=== PATIENT | male | born 1955 | race Caucasian/White ===

== ENCOUNTER → 2019-11-22 11:02 | Outpatient (CLI) | payer OTHER, SELFPAY ==
[2019-11-23 01:59] LABS: COVID19 Sendout Not Detected (Not Detect)
== END ==
PROVIDERS: Visit Provider Physician Assistant
DX: Z01.812 Encounter for preprocedural laboratory examination (principal)
CPT/HCPCS: 87635

== ENCOUNTER 2019-11-24 06:59 | Day surgery (SDC) | payer OTHER, SELFPAY ==
[2019-11-17 14:56] VITALS: BMI 23.7
[2019-11-24 07:19] VITALS: BP 150/94; PULSE 55; RESP 16; TEMP 36.8; O2SAT 100; BMI 23.8
[2019-11-24] MEDS: LACTATED RINGERS 1,000 ML 100 ML IV (07:35)
[2019-11-24] MEDS: CEFAZOLIN 2 GM/100 ML FROZ.PIGGY IV (07:35)
--- NOTE | 2019-11-24 07:38 | PM.PREOP ---
Pre-operative Note COVID-19 COVID-19 status: Negative Result date/Date tested (Pos, Neg/Pending): 11/22/19 Interval Note History & Physical reviewed/Exam performed by Physician: Yes Changes to H&P: No
--- NOTE | 2019-11-24 08:11 | SUR.OPER ---
Prone on padded OR bed, head in foam head support, gel chest rolls, gel pad under knees, pillow under lower legs, toes free of pressure, arms secured on padded arm boards at <90 degrees abduction. Safety belt at thigh.
[2019-11-24] MEDS: metroNIDAZOLE 500 MG/100 ML PIGGYBACK 100 MG IV (08:15)
[2019-11-24] MEDS: BUPIVACAINE 0.25% W/ EPI 30 ML VIAL INJ (08:18)
[2019-11-24] MEDS: BUPIVACAINE LIPOSOME 266 MG/20 ML VIAL INJ (08:18)
[2019-11-24] MEDS: DIBUCAINE 1% OINT 28 GM 1 APPLIC TOP (08:24)
--- NOTE | 2019-11-24 08:33 | PM.OP.1 ---
Operative Date/Time/Diagnoses Date of procedure: 11/24/19 Time of procedure: 08:33 Pre-op diagnosis: hemorrhoids Post-op diagnosis: same Procedure & Clinicians Procedure: Excision of internal and external hemorrhoids, two columns Same procedure as scheduled: Yes Indications: Perianal pain and swelling Surgeon: Izabela Bautista Click Yes if Unassisted: Yes Anesthesia Type: General Operative Notes Findings: Internal and external hemorrhoids, left lateral and right posterior hemorrhoidal columns Specimen(s): none sent Estimated Blood Loss (mL): 1 Procedure in detail: The patient was brought into the OR. Sequential compression devices were placed on both legs and turned on. Appropriate perioperative antibiotics were given. General anesthesia was induced and the patient was intubated. The patient was turned prone onto the OR table. All bony prominences were padded. The buttocks were taped apart. The perianal area was prepped and draped in sterile fashion with betadine prep. Surgical timeout was conducted. 0.25% Marcaine with epi was used to perform a four quadrant anal block using 5mL per quadrant for a total of 20mL. On external exam there were moderate external hemorrhoids seen in the right posterior and left lateral columns. With copious lubricant, an anorectal exam was performed using an anal retractor. Large internal hemorrhoids were seen in the left lateral and right posterior columns. The right posterior hemorrhoid was grasped proximal to the dentate line and divided at its base using a Thunderbeats dissector. Dissection was carried along the base of the hemorrhoid avoiding the sphincter muscles, excising the internal and external hemorrhoidal column. The same was again performed at the left lateral hemorrhoidal column. The left lateral hemorrhoid was grasped proximal to the dentate line and divided at its base using a Thunderbeats dissector. Dissection was carried along the base of the hemorrhoid avoiding the sphincter muscles, excising the internal and external hemorrhoidal column. The entire anal canal was then again examined. There was good hemostasis. Exparel was injected circumferentially in small aliquots, for a total of 20 mL. 0.25% Marcaine with epinephrine was injected circumferentially for a total of 50mL. A large Gelfoam was then coated and rolled with Dibucaine and placed in the anal canal. A thick layer of Dibucaine was used to coat the anoderm. A stack of 4x4 gauze was then used to cover the anal opening and secured in place with medipore tape. The patient was transferred onto her hospital bed into supine position. She was then awakened from anesthesia and extubated. Needle, sponge, and instrument counts were correct x 2. The patient was transferred to the PACU in stable condition. Complications: none Post-operative Condition: stable Disposition: PACU
[2019-11-24 08:45] VITALS: BP 151/82; PULSE 62; RESP 14; TEMP 36.1; O2SAT 100
[2019-11-24 08:48] VITALS: BP 141/72; PULSE 60; RESP 12; O2SAT 100
[2019-11-24 08:53] VITALS: BP 136/68; PULSE 58; RESP 16; O2SAT 100
[2019-11-24 08:58] VITALS: BP 132/75; PULSE 55; RESP 12; TEMP 36.7; O2SAT 100
[2019-11-24 09:30] VITALS: BP 136/79; PULSE 49; RESP 16; TEMP 36.6; O2SAT 100
== END 2019-11-24 09:40 | disposition home or self-care (01) ==
PROVIDERS: Referring Provider Surgery; Visit Provider Surgery
PROC: (CPT 46260; principal; 2019-11-24 07:45)
DX: K64.8 Other hemorrhoids (principal); K64.4 Residual hemorrhoidal skin tags
CPT/HCPCS: 46260; C9290; J0330; J0690; J1100; J2405; J2704; J3010

== ENCOUNTER → 2020-11-27 09:56 | Outpatient (CLI) | payer OTHER, SELFPAY ==
[2020-11-27 10:58] LABS: Add Manual Diff / Slide Review NO; Basophils Absolute Auto 100 /uL (0-100); Basophils Percent Auto 0.8 % (0-2); Eosinophils Absolute Auto 100 /uL (0-450); Eosinophils Percent Auto 0.7 % (2-4); Hematocrit 39.1 % (41-53); Hemoglobin 13.2 g/dL (13.5-17.5); Lymphocytes Absolute Auto 2500 /uL (1100-4500); Lymphocytes Percent Auto 32.4 % (25-40); Mean Corpuscular HGB Conc 33.9 % (30-36); Mean Corpuscular Hemoglobin 32.3 PG (26-34); Mean Corpuscular Volume 95.5 fL (80-100); Monocytes Absolute Auto 700 /uL (0-900); Monocytes Percent Auto 9.3 % (3-14); Neutrophils Absolute Auto 4400 /uL (1500-7000); Neutrophils Percent Auto 56.8 % (50-75); Platelet Count 272 X10^3/uL (150-400); Red Blood Cell Count 4.09 X10^6/uL (4.5-5.9); Red Cell Distribution Width 13.3 % (11.6-14.8); White Blood Cell Count 7.7 X10^3/uL (4.5-11.0)
[2020-11-27 11:13] LABS: Alanine Aminotransferase 19 IU/L (<50); Albumin 4.1 g/dL (3.5-5.0); Albumin Globulin Ratio 1.6 (1.0-2.8); Alkaline Phosphatase 61 U/L (38-126); Aspartate Aminotransferase 22 IU/L (17-59); BUN Creatinine Ratio 20.8 (6-22); Bilirubin Total 0.7 mg/dL (0.2-1.3); Blood Urea Nitrogen 15 mg/dL (9-20); Carbon Dioxide 29 mmol/L (22-32); Chloride 103 mmol/L (98-107); Cholesterol 245 mg/dL (140-199); Estimated Glomerular Filt Rate > 60.0 mL/min (>60); Globulin 2.6 g/dL (1.7-4.1); Glucose 85 mg/dL (80-110); HDL Cholesterol 87 mg/dL (40-60); HEMOLYSIS < 15 (0-50); LDL Cholesterol Calculated 139 mg/dL (<100); Potassium 3.8 mmol/L (3.4-5.1); Sodium 137 mmol/L (137-145); Total Protein 6.7 g/dL (6.3-8.2); Triglycerides 93 mg/dL (35-150)
[2020-11-27 11:42] LABS: Prostate Specific Antigen 0.286 ng/mL (0.10-4.00)
== END ==
PROVIDERS: PCP Family Medicine; Referring Provider Family Medicine; Visit Provider Family Medicine
DX: Z00.00 Encounter for general adult medical examination without abnormal findings (principal)
CPT/HCPCS: 36415; 80053; 80061; 84153; 85025

== ENCOUNTER 2023-04-23 10:24 | Day surgery (SDC) | payer OTHER, SELFPAY ==
[2023-04-23 10:45] VITALS: BP 156/82; PULSE 71; RESP 16; TEMP 36.6; O2SAT 99; BMI 25.1
[2023-04-23] MEDS: LACTATED RINGERS 1,000 ML 150 ML IV (11:06)
--- NOTE | 2023-04-23 12:26 | P.HP_ITS ---
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) Hemorrhoids (~2009) Surgical History Anesthesia Detached retina, left (~1966) Hx of appendectomy (1971) Family History Father Cancer Mother Hypertension Alzheimer's disease Grandfather Cancer Grandmother History of emphysema Social History household members: spouse Smoking Status: Former smoker Tobacco: How many years used: 2 second hand exposure: No alcohol intake: current substance use type: does not use Meds Home Medications and Allergies Home Medications Medication Instructions Recorded Confirmed Type No Known Home Medications 04/23/23 04/23/23 History Allergies Allergy/AdvReac Type Severity Reaction Status Date / Time No Known Drug Allergies Allergy Verified 03/24/23 14:17 Review of Systems Review of Systems ROS: Yes All systems reviewed with the patient and are negative except as otherwise documented Exam Vital Signs (past 8 hours): - 04/23/23 10:45 Temperature 98 F Pulse Rate 71 Respiratory Rate 16 Blood Pressure 156/82 H Pulse Oximetry 99 Oxygen Delivery Method Room Air Oxygen Delivery Method Room Air Const General: cooperative, comfortable and well developed Nutritional Appearance: average body habitus HENCT Head: normocephalic and atraumatic Eyes General: appearance normal, both eyes and all related structures Sclera: normal sclerae Neck Neck: normal visual inspection and trachea midline Resp Effort & Inspection: normal respiratory effort and able to speak in complete s entences Cardio Rate: regular rate Rhythm: regular rhythm GI Palpation: soft and No tender Skin General: atrophy Neuro General: patient alert, patient awake and patient oriented x3 Psych Mental Status: mental status grossly normal Judgment: judgment good Assessment & Plan Assessment & Plan narrative: colon cancer screening using colonoscopy with anesthesia Time Spent With Patient Time with patient: less than 30 minutes
--- NOTE | 2023-04-23 12:32 | PM.OP.COLON ---
Operative Date/Time/Diagnoses Date of procedure: 04/23/23 Time of procedure: 12:32 Pre-op diagnosis: colon cancer screening Post-op diagnosis: same Procedure & Clinicians Study performed: Colonoscopy with anesthesia Same procedure as scheduled: Yes Indications: Colon cancer screening Surgeon: Janessa Sofia Procedure Notes Procedure in detail: Preop diagnosis: Colon cancer screening Postop diagnosis: Same Operative procedure: Colonoscopy with anesthesia Surgeon: Larisa Sofia MD Findings: Normal colonoscopy. Small scant diverticuli in the descending colon no polyps. Procedure: Patient placed in lateral position. Rectal exam performed showing normal tone no masses Colonoscope inserted into the rectum and advanced to ileocecal valve with minimal difficulty. Insufflation extraction of the scope and the above findings. Retroflex was included in the rectum. Impression: Small scant diverticuli of the descending colon. No polyps Plan: Repeat colonoscopy in 10 years unless otherwise indicated by change in clinical condition Findings: divertiulosis Specimen(s): none sent Complications: none Post-procedure Recommendations: Colonoscopy in 10 years Follow up: as needed Disposition: PACU
--- NOTE | 2023-04-23 12:39 | SUR.OPER ---
Patients glasses brought with patient to ENDO Suite. Placed in black glass case with patient label and brought with patient to PACU.
[2023-04-23 12:51] VITALS: BP 101/66; PULSE 67; RESP 18; TEMP 36.5; O2SAT 98
[2023-04-23 12:56] VITALS: BP 108/72; PULSE 64; RESP 14; O2SAT 97
[2023-04-23 13:01] VITALS: BP 127/77; PULSE 67; RESP 10; O2SAT 98
[2023-04-23 13:05] VITALS: BP 134/80; PULSE 60; RESP 15; TEMP 36.6; O2SAT 99
== END 2023-04-23 13:25 | disposition home or self-care (01) ==
PROVIDERS: PCP Family Medicine; Referring Provider Surgery; Visit Provider Surgery
PROC: 0DJD8ZZ Inspection of Lower Intestinal Tract, Via Natural or Artificial Opening Endoscopic (ICD-10-PCS; CPT 45378; principal; 2023-04-23 11:45)
DX: Z12.11 Encounter for screening for malignant neoplasm of colon (principal); K57.30 Diverticulosis of large intestine without perforation or abscess without bleeding
CPT/HCPCS: 45378; J2704

== ENCOUNTER → 2023-12-15 10:49 | Outpatient (CLI) | payer OTHER, SELFPAY ==
--- NOTE | 2023-12-15 10:50 | DI.RAD.S_ITS ---
PROCEDURE: XR SHOULDER RT MIN 2V INDICATIONS: eval R shoulder TECHNIQUE: 3 views of the shoulder were acquired. COMPARISON: None. FINDINGS: Bones: No fractures or dislocations. No suspicious bony lesions. Visualized ribs appear intact. Moderate acromioclavicular degenerative narrowing. Soft tissues: No suspicious soft tissue calcifications. IMPRESSION: No acute bony abnormality. Dictated by: Danielle Almaguer M.D. on 12/15/2023 at 15:28 Approved by: Danielle Almaguer M.D. on 12/15/2023 at 15:28
== END ==
PROVIDERS: PCP Family Medicine; Referring Provider Family Medicine; Visit Provider Family Medicine
DX: M25.511 Pain in right shoulder (principal); M75.00 Adhesive capsulitis of unspecified shoulder
CPT/HCPCS: 73030

== ENCOUNTER → 2024-08-25 13:29 | Outpatient (CLI) | payer OTHER, SELFPAY ==
--- NOTE | 2024-08-25 13:30 | DI.RAD.S_ITS ---
PROCEDURE: XR CHEST 2V INDICATIONS: chronic cough x 2 yrs TECHNIQUE: 2 views of the chest were acquired. COMPARISON: None. FINDINGS AND IMPRESSION: No dense airspace disease or pleural effusion. Normal heart size. Age-indeterminate minimal superior endplate deformity at T8. Dictated by: Kirk Ramírez M.D. on 08/25/2024 at 15:44 Approved by: Kirk Ramírez M.D. on 08/25/2024 at 15:44
== END ==
PROVIDERS: PCP Family Medicine; Referring Provider Physician Assistant; Visit Provider Physician Assistant
DX: H69.90 Unspecified Eustachian tube disorder, unspecified ear (principal); R09.82 Postnasal drip; M43.8X4 Other specified deforming dorsopathies, thoracic region
CPT/HCPCS: 71046